=== PATIENT | female | born 1950 | race Caucasian/White ===

== ENCOUNTER 2022-05-08 19:40 | Emergency (ER) | payer OTHER ==
[~2022-05-08] VITALS: Ht 154.9 cm; Wt 84.4 kg
--- NOTE | 2022-05-08 21:00 | NUR ---
Dr. Shelley at bedside for MSE.
[2022-05-08] MEDS ORDERED: ALBU8.5H8 IH (22:16)
[2022-05-08] MEDS ORDERED: PRED20TA PO (22:16)
[2022-05-08] MEDS ORDERED: predniSONE 20 MG TABLET ONE (22:18)
--- NOTE | 2022-05-08 22:24 | NUR ---
Patient discharged to home in stable condition. Written and verbal after care instructions given. Patient verbalizes understanding of instructions. Stressed follow up or return to ER for worsening s/s. Patient out of ER with steady gait, no acute signs of distress, VSS, all belongings taken, provided with copies of lab and Xray a results.
[2022-05-08 22:25] VITALS: BP 147/86
[2022-05-08] MEDS ORDERED: predniSONE 20 MG TABLET PO ONE (22:30)
== END 2022-05-08 22:26 | disposition home or self-care (01) ==
LOC: ER 19:44
DX: J40 Bronchitis, not specified as acute or chronic (principal); Z20.822 Contact with and (suspected) exposure to COVID-19; E78.5 Hyperlipidemia, unspecified
CPT/HCPCS: 71045; A4663; J7512